=== PATIENT | female | born 1945 | race Two or more races ===

== ENCOUNTER → 2024-03-20 | Outpatient (CLI) | payer OTHER, SELFPAY ==
--- NOTE | 2024-03-20 14:00 | XR_ITS ---
Examination: Transvaginal ultrasound of the pelvis, complete Technique: Transvaginal sonographic images pelvis performed using jones scale imaging Exam date and time: March 20, 2024 1510 hours INDICATIONS: Pelvic cramping and vaginal discharge beginning 2 years ago, post hysterectomy in ovary removal FINDINGS: No uterus or ovaries No free fluid in the pelvis No pelvic mass IMPRESSION: No free fluid in the pelvis No pelvic mass.
--- NOTE | 2024-03-20 14:00 | XR_ITS ---
Examination: Pelvic ultrasound, transabdominal, complete Technique: Transabdominal ultrasound of the pelvis performed using grayscale imaging Date and time of exam: March 20, 2024 1500 hours INDICATIONS: Removal uterus ovaries 20 years ago pelvic cramping and vaginal discharge intermittent beginning 2 years ago FINDINGS: No uterine or adnexal tissue noted No free fluid in the pelvis No pelvic mass IMPRESSION: No free fluid in the pelvis, no pelvic mass
== END | disposition home or self-care (01) ==
PROVIDERS: PCP Family Medicine; Referring Provider Family Medicine; Visit Provider Family Medicine
DX: R10.2 Pelvic and perineal pain (principal); F52.6 Dyspareunia not due to a substance or known physiological condition
CPT/HCPCS: 76830; 76856